=== PATIENT | male | born 1995 | race American Indian/Alaskan Native ===

== ENCOUNTER 2018-07-05 13:27 | Emergency (ER) | payer SELFPAY ==
[2018-07-05 14:16] VITALS: BP 156/91
--- NOTE | 2018-07-05 14:18 | Emergency Department Report ---
Blank Doc - Documentation Documentation: 23 yo male presents withpmh of depression and axiety presents feeling anxious and having an anxiety attack not taking meidcations. cant remember name of meds Denies SI/HI ua/ uds medicate reevalute refferral
[2018-07-05 14:58] LABS: Bilirubin,Urine NEG (Negative); Blood,Urine NEG (Negative); Color,Urine Yellow (Yellow)
[2018-07-05 14:59] LABS: Bacteria,Urine 4+ /HPF (Negative); Mucus,Urine 2+ /HPF; Sperm,Urine 3+ /HPF (NP)
[2018-07-05 15:12] LABS: Amphetamine Screen,Urine PRESUMPTIVE NEGATIVE; Benzodiazepines Screen,Urine PRESUMPTIVE NEGATIVE; Cocaine Screen,Urine PRESUMPTIVE NEGATIVE; Methadone Screen,Urine PRESUMPTIVE NEGATIVE; Opiate Screen,Urine PRESUMPTIVE NEGATIVE
[2018-07-05 15:28] LABS: Cannabinoid Screen,Urine PRESUMPTIVE POSITIVE
--- NOTE | 2018-07-05 17:52 | Emergency Department Report ---
ED Anxiety HPI - General Chief Complaint: Anxiety Stated Complaint: DEPRESSION/ANXIETY Time Seen by Provider: 07/05/18 14:13 Source: patient, EMS Mode of arrival: Ambulatory - History of Present Illness Initial Comments: This is a 23-year-old male nontoxic, well nourished in appearance, no acute signs of distress presents to the ED with c/o of anxeity and depression. Patient denies any SI or HI. When asked what triggers his anxiety and depression, patient stated just hard life. Patient denies any chest pain, shortness of breath, fever, chills, nausea, vomiting, headache, stiff neck, numbness or tingling. Patient denies any alcohol or drug abuse. Patient denies any allergies. Stated that he takes medications for anxiety and depression has not taken them in a long time and does not remember the medication name. Currently while assessment and interview, patient stated that he is no longer anxious but does have some depression. Again, patient denies any SI or HI. MD Complaint: anxiety, other (depression) -: days(s) Previous History of Same: Yes Severity: mild Quality: intermittant, improving Provoking factors: emotional stress Improves With: medication Worsens With: thinking about event Associated symptoms: denies other symptoms. denies: chest pain, shortness of breath, palpitations, diaphoresis, confusion, cough, fever/chills, headaches, anorexia, malaise, nausea/vomiting, rash, seizure, syncope, weakness - Related Data Allergies/Adverse Reactions: Allergies Allergy/AdvReac Type Severity Reaction Status Date / Time No Known Allergies Allergy Verified 07/05/18 14:13 ED Review of Systems ROS: Stated complaint: DEPRESSION/ANXIETY Other details as noted in HPI Constitutional: denies: chills, fever Eyes: denies: eye pain, eye discharge, vision change ENT: denies: ear pain, throat pain Respiratory: denies: cough, shortness of breath, wheezing Cardiovascular: denies: chest pain, palpitations Endocrine: no symptoms reported Gastrointestinal: denies: abdominal pain, nausea, diarrhea Genitourinary: denies: urgency, dysuria Musculoskeletal: denies: back pain, joint swelling, arthralgia Skin: denies: rash, lesions Neurological: denies: headache, weakness, paresthesias Psychiatric: anxiety. denies: depression, auditory hallucinations, visual hallucinations, homicidal thoughts, suicidal thoughts Hematological/Lymphatic: denies: easy bleeding, easy bruising ED Past Medical Hx - Social History Smoking Status: Current Every Day Smoker Substance Use Type: None, Marijuana ED Physical Exam - General Limitations: No Limitations General appearance: alert, in no apparent distress - Head Head exam: Present: atraumatic, normocephalic - Eye Eye exam: Present: normal appearance - Neck Neck exam: Present: normal inspection, full ROM. Absent: tenderness, meningismus, lymphadenopathy - Respiratory Respiratory exam: Present: normal lung sounds bilaterally. Absent: respiratory distress, wheezes, rales, rhonchi, stridor, chest wall tenderness, accessory muscle use, decreased breath sounds, prolonged expiratory - Cardiovascular Cardiovascular Exam: Present: regular rate, normal rhythm, normal heart sounds. Absent: irregular rhythm, systolic murmur, diastolic murmur, rubs, gallop - Rectal Rectal exam: Present: deferred - Extremities Exam Extremities exam: Present: normal inspection, full ROM - Back Exam Back exam: Present: normal inspection, full ROM - Neurological Exam Neurological exam: Present: alert, oriented X3, normal gait - Psychiatric Psychiatric exam: Present: normal affect, normal mood, depressed. Absent: agitated, anxious, flat affect, manic, homicidal ideation, suicidal ideation - Skin Skin exam: Present: warm, dry, intact, normal color. Absent: rash ED Course Vital Signs 07/05/18 14:13 Temperature 98.7 F Pulse Rate 94 H Respiratory 16 Rate Blood Pressure 156/91 O2 Sat by Pulse 99 Oximetry - Reevaluation(s) Reevaluation #1: 07/05/18 17:53 Patient is speaking in full sentences with no signs of distress noted. - Consultations Consultation #1: 07/05/18 17:53 Patient has been consulted with mental health about patient history, physical exam, and came to speak with patient and also provide resources for patient to s [place] treatment options. ED Medical Decision Making - Medical Decision Making This is a 23-year-old male that presents with anxiety and depression. Patient is stable and was examined by me. Patient denies any suicidal or homicidal ideation. Mental health provider examination is screened patient and did give patient some referrals. Patient is medically stable for discharge at this time. Patient does not need meet 1013 criteria. Upon discharge patient stated that his anxiety has been resolved but does still have slight depression but stated that he feels better due to the referrals that patient received. Patient was instructed to Follow-up with a primary care doctor in 3-5 days or if symptoms worsen and continue return to emergency room as soon as possible. At time of discharge, the patient does not seem toxic or ill in appearance. No acute signs of distress noted. Patient agrees to discharge treatment plan of care. No further questions noted by the patient. Critical care attestation.: If time is entered above; I have spent that time in minutes in the direct care of this critically ill patient, excluding procedure time. ED Disposition Clinical Impression: Anxiety Depression Qualifiers: Depression Type: unspecified Qualified Code(s): F32.9 - Major depressive disorder, single episode, unspecified Disposition: DC- TO HOME OR SELFCARE Is pt being admited?: No Does the pt Need Aspirin: No Condition: Stable Instructions: Generalized Anxiety Disorder (ED), Depression (ED) Additional Instructions: Follow-up with a primary care doctor in 3-5 days or if symptoms worsen and continue return to emergency room as soon as possible. You have been provided with several referrals by a mental health specialist. Please use these referrals as this can assist your anxiety and depression. If you develop any suicidal or homicidal ideation, please report to the nearest emergency room as soon as possible or call 911. Referrals: ABHI MERCEDES MD [Primary Care Provider] - 3-5 Days PRIMARY MD TYRONE [Referring] - 3-5 Days NO GODOY MD [Staff Physician] - 3-[address] [facility] [Outside] - 3-5 Days [facility] [Outside] - 3-5 Days
== END 2018-07-05 19:24 | disposition home or self-care (01) ==
LOC: ED 13:27
DX: F32.9 Major depressive disorder, single episode, unspecified (principal); F41.9 Anxiety disorder, unspecified; F17.200 Nicotine dependence, unspecified, uncomplicated; F12.10 Cannabis abuse, uncomplicated
CPT/HCPCS: 80307; 81001

== ENCOUNTER 2018-07-05 20:01 | Emergency (ER) | payer SELFPAY | END 2018-07-05 20:02 | disposition left against medical advice (07) | LOC: ED 20:01 ==

== ENCOUNTER 2018-08-05 18:33 | Emergency (ER) | payer OTHER ==
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
[2018-08-05] MEDS ORDERED: NACL 0.9% 1000 ML 1,000 ML IV ONE (20:38)
[2018-08-05 20:40] LABS: Basophils % (Auto) 0.5 % (0.0-1.8); Eosinophils % (Auto) 0.4 % (0.0-4.3); Hematocrit 42.5 % (35.5-45.6); Hemoglobin 14.3 gm/dl (11.8-15.2); Lymphocytes # (Auto) 1.3 K/mm3 (1.2-5.4); Mean Corpuscular HGB Conc 34 % (32-34); Mean Corpuscular Volume 82 fl (84-94); Monocytes # (Auto) 0.3 K/mm3 (0.0-0.8); Monocytes % (Auto) 5.2 % (0.0-7.3); Red Cell Distribution Width 14.4 % (13.2-15.2)
[2018-08-05 20:42] LABS: Platelet Count 112 K/mm3 (140-440)
[2018-08-05 20:45] LABS: Alanine Aminotransferase 38 units/L (7-56); Albumin 4.7 g/dL (3.9-5); BUN/Creatinine Ratio 7; Blood Urea Nitrogen 8 mg/dL (9-20); Calcium 9.1 mg/dL (8.4-10.2); Hemolysis Index 6
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
[2018-08-05 21:31] LABS: Bilirubin,Urine NEG (Negative); Blood,Urine NEG (Negative); Color,Urine Straw (Yellow); Protein,Urine <15 mg/dL mg/dL (Negative); RBC,Urine < 1.0 /HPF (0.0-6.0); Urobilinogen,Urine < 2.0 mg/dL (<2.0); WBC,Urine < 1.0 /HPF (0.0-6.0)
[2018-08-05 21:44] LABS: Amphetamine Screen,Urine PRESUMPTIVE NEGATIVE; Benzodiazepines Screen,Urine PRESUMPTIVE NEGATIVE; Cocaine Screen,Urine PRESUMPTIVE NEGATIVE; Methadone Screen,Urine PRESUMPTIVE NEGATIVE; Opiate Screen,Urine PRESUMPTIVE NEGATIVE
[2018-08-05 21:57] LABS: Cannabinoid Screen,Urine PRESUMPTIVE POSITIVE
--- NOTE | 2018-08-05 23:56 | Cat Scan Report ---
PROCEDURE: CT HEAD/BRAIN WO CON TECHNIQUE: Computerized tomography of the head was performed without contrast material. CT DOSE LENGTH PRODUCT: 920 mGycm HISTORY: Head pain Trauma COMPARISONS: None . FINDINGS: Skull and scalp: Normal . Paranasal sinuses: Normal . Ventricles and subarachnoid spaces: Normal . Cerebrum: No evidence of hemorrhage, acute infarction or mass . Cerebellum and brainstem: No evidence of hemorrhage, acute infarction or mass . Vasculature: Normal . Other: None . ASPECTS: 10 IMPRESSION: Normal Examination . This document is electronically signed by Alie Burton DO., August 05 2018 11:54:16 PM ET
--- NOTE | 2018-08-05 23:59 | Cat Scan Report ---
PROCEDURE: CT CERVICAL SPINE WO CON TECHNIQUE: Computerized tomography of the cervical spine was performed from the skull base to T1 wit hout contrast material. CT DOSE LENGTH PRODUCT: 736 mGycm HISTORY: Neck pain Trauma COMPARISONS: None . FINDINGS: The alignment is normal. The heights of the vertebral bodies and the disc spaces are maintained. No a cute fracture or dislocation of the cervical spine. Spinal canal is adequate at all levels. C1-2: No significant abnormality . C2-3: No significant abnormality . C3-4: No significant abnormality . C4-5: No significant abnormality . C5-6: No significant abnormality . C6-7: No significant abnormality . C7-T1: No significant abnormality . Fractures: None . Other: No additional findings . IMPRESSION: Normal CT cervical spine . This document is electronically signed by Alie Burton DO., August 05 2018 11:57:27 PM ET
--- NOTE | 2018-08-06 00:02 | Cat Scan Report ---
PROCEDURE: CT CHEST W CON TECHNIQUE: Computerized axial tomography of the chest was performed without contrast material. This study is performed without intravenous contrast and the sensitivity for pathology, including neoplasm s, adenopathy, abscess, pulmonary embolism and aortic dissection, is reduced. CT DOSE LENGTH PRODUCT: 827 mGycm HISTORY: Chest pain Trauma COMPARISONS: None . FINDINGS: Heart and pericardium: Normal. Thoracic aorta: Normal. Pulmonary vasculature: Normal. Lymph nodes: No enlarged thoracic lymph nodes. Lungs: Normal. Pleural space: No effusion, thickening, or pneumothorax. Musculoskeletal structures: No significant abnormality. Upper abdominal structures: No significant abnormality. IMPRESSION: Normal examination. This document is electronically signed by Alie Burton DO., August 06 2018 12:00:00 AM ET
--- NOTE | 2018-08-06 00:08 | Cat Scan Report ---
PROCEDURE: CT ABDOMEN PELVIS W CON TECHNIQUE: Computerized axial tomography of the abdomen and pelvis was performed after the IV inject ion of iodinated nonionic contrast. CT DOSE LENGTH PRODUCT: 2398 mGycm HISTORY: Abdominal pain Trauma COMPARISONS: None . FINDINGS: Visualized lower thorax: No significant abnormality. Liver: Normal size and attenuation. Spleen: Normal size and attenuation. Gallbladder and biliary system: Normal. Pancreas: Normal. Adrenals: Normal. Kidneys: Normal. GI tract: Normal . Lymph nodes and mesentery: Normal. Vasculature: Normal.. Bladder: Normal. Reproductive organs: Normal. Peritoneum: No free fluid. Musculoskeletal structures: No significant abnormality. Other: None . IMPRESSION: Normal examination of the abdomen and pelvis . This document is electronically signed by Alie Burton DO., August 06 2018 12:05:58 AM ET
[2018-08-06] MEDS ORDERED: NACL 0.9% 1000 ML 1,000 ML IV ONE (00:14)
--- NOTE | 2018-08-06 12:43 | Consultation ---
History of Present Illness - Reason for Consult Consult date: 08/06/18 Reason for consult: Mental Health Evaluation Requesting physician: LEV REZA - Chief Complaint Chief complaint: "I have anxiety" - History of Present Psychiatric Illness 23 yo AA male who presented to the Er for bizarre behavior. Today the patient patient is calm, but disorganized during the assessment. He was asked several q uestions about his ER visits and most of his answers were not logical. He pause for several seconds before he answers questions. He is adamant that he has anxiety and need his medications refilled. Per this assessment, the patient's VS's are stable and he has no symptoms of anxiety at this time. He would not confirm or deny AH's. Overall, this patient is a poor historian. No gestures of SI/HI's. Medications and Allergies Allergies Allergy/AdvReac Type Severity Reaction Status Date / Time No Known Allergies Allergy Verified 07/05/18 14:13 Past psychiatric history - Past Medical History Past Medical History: No medical history Past Surgical History: No surgical history - past Psychiatric treatment and history psychiatric treatment history: Inpatient psy services in the past. Denies a fam psy hx. Mental Status Exam - Vital signs Last Vital Signs Temp 97.7 F 08/06/18 07:00 Pulse 90 08/06/18 07:00 Resp 18 08/06/18 07:00 BP 133/88 08/06/18 07:00 Pulse Ox 100 08/06/18 07:00 - Exam Narrative exam: MSE: Appearance: calm Behavior: regular eye contact Speech: regular rate and loud tone Mood: "okay" Affect: constricted Thought Process: disorganized Thought Content: no gestures of SI/Hi's and VH', responding to some type of stimuli Motor Activity: sitting up in the bed Cognition: A/O x3 Insight: poor Judgment: poor Results Result Diagrams: 08/05/18 19:22 08/05/18 19:22 Abnormal lab results 08/05/18 08/05/18 08/05/18 Range/Units 19:22 19:22 19:22 RBC 5.20 H (3.65-5.03) M/mm3 MCV 82 L (84-94) fl Plt Count 112 L (140-440) K/mm3 Seg Neutrophils % 71.9 H (40.0-70.0) % Potassium 3.5 L (3.6-5.0) mmol/L BUN 8 L (9-20) mg/dL Glucose 101 H (75-100) mg/dL Salicylates < 0.3 L (2.8-20.0) mg/dL Acetaminophen (10.0-30.0) ug/mL 08/05/18 Range/Units 19:22 RBC (3.65-5.03) M/mm3 MCV (84-94) fl Plt Count (140-440) K/mm3 Seg Neutrophils % (40.0-70.0) % Potassium (3.6-5.0) mmol/L BUN (9-20) mg/dL Glucose (75-100) mg/dL Salicylates (2.8-20.0) mg/dL Acetaminophen < 5.0 L (10.0-30.0) ug/mL All other labs normal. Assessment and Plan Assessment and plan: Impression: Unspecified Psychosis. Cannabis Use DO. Today the patient is calm, but disorganized during the assessment. DDx: Schizophrenia, Substance Induced Mood Psychosis Recommendation/Plan: Continue 1013 and start Zyprexa 5 mg PO HS for psychosis. Discussed possible metabolic side effects of Zyprexa with the patient. Dispo: The patient was referred to inpatient psy services. Will staff with Dr Capri Washington.
--- NOTE | 2018-08-07 07:48 | Progress Note ---
Subjective - Reason for Consult Consult date: 08/07/18 Reason for consult: Psychiatry Follow-up - Chief Complaint Chief complaint: "I am okay" 23 yo AA male who presented to the Er for bizarre behavior. Today the patient patient is calm, but still somewhat disorganized during the assessment. He was several times about his behavior to coming to the ER, his answers were not logical. He continues to appear that he is responding to some type of stimuli. H e denies SI/HI's and AVH's. Mental Status Exam - Vital signs Last Vital Signs Temp 98.3 F 08/07/18 03:00 Pulse 70 08/07/18 03:00 Resp 18 08/07/18 03:00 BP 133/89 08/07/18 03:00 Pulse Ox 100 08/07/18 03:00 - Exam Narrative exam: MSE: Appearance: calm Behavior: regular eye contact Speech: regular rate and loud tone Mood: "okay" Affect: constricted Thought Process: disorganized Thought Content: denies SI/Hi's and AVH', responding to some type of stimuli Motor Activity: sitting up in the bed Cognition: A/O x3 Insight: poor Judgment: poor Assessment and Plan Impression: Unspecified Psychosis. Cannabis Use DO. Today the patient is calm, but still somewhat disorganized during the assessment. DDx: Schizophrenia, Substance Induced Mood Psychosis Recommendation/Plan: Continue 1013 and Zyprexa 5 mg PO HS for psychosis. Discussed possible metabolic side effects of Zyprexa with the patient. Dispo: The patient was referred to inpatient psy services. Will staff with Dr Shira Washington.
[2018-08-07 17:41] VITALS: BP 121/80
== END 2018-08-07 17:45 ==
LOC: ED 18:33
DX: F23 Brief psychotic disorder (principal); F19.10 Other psychoactive substance abuse, uncomplicated; Z59.0 Homelessness; F32.9 Major depressive disorder, single episode, unspecified; F41.9 Anxiety disorder, unspecified; F17.200 Nicotine dependence, unspecified, uncomplicated
CPT/HCPCS: 36415; 70450; 71260; 72125; 74177; 80053; 80307; 81001; 82140; 85025; 96360; 96361; 99285; G0480; J7030; Q9967; 80320